=== PATIENT | female | born 1990 | race African-American/Black ===

== ENCOUNTER 2017-06-05 09:17 | Emergency (ER) | payer SELFPAY ==
[~2017-06-05] VITALS: Ht 157.5 cm; Wt 75.0 kg
[~2017-06-05 09:17] MED LIST: B-12100 MCG PO; BC HEADACH1 PO; CEPHALEXIN500 MG OR; CITALOPRAM20 MG PO; DEPO PROVERA; FIORICET PO; LORTAB 5 OR; LORTAB 5/3255 MG PO; LORTAB5 OR; LORTAB5 PO; MIRTAZAPINE15 MG PO; NAPROSYN500 MG OR; NAPROSYN500 MG PO; NAPROXEN500 MG OR; NORCO1 TA1 PO; PAXIL30 MG PO; PENICILLN VK500 M1 OR; PENICILLN VK500 MG OR; PENICILLN VK500 MG PO; TRAMADOL HCL50 MG OR; TRAZODONE50 MG PO; TYLENOL500 MG OR; ULTRAM50 M1 PO; ULTRAM50 MG PO; ZOVIRAX400 MG PO
[2017-06-05] MEDS ORDERED: FLEXERIL5 MG PO (09:44)
[2017-06-05] MEDS ORDERED: MOTRIN400 MG PO (09:44)
[2017-06-05 09:50] VITALS: BP 121/77
== END 2017-06-05 09:50 | disposition home or self-care (01) | DRG 556 ==
LOC: ED 09:17
DX: M62.838 Other muscle spasm (principal); M54.2 Cervicalgia

== ENCOUNTER 2017-10-05 14:49 | Emergency (ER) | payer SELFPAY ==
[~2017-10-05] VITALS: Ht 157.5 cm; Wt 73.8 kg
[~2017-10-05 14:49] MED LIST changes: +FLEXERIL5 MG PO; +MOTRIN400 MG PO
[2017-10-05 15:54] LABS: HEMATOCRIT 35.6 % (37.0-47.0); HEMOGLOBIN 11.6 g/dl (12.0-16.0); IMMATURE GRANULOCYTES 0.1 % (0.0-1.0); MEAN CORPUSCULAR HGB CONC 32.6 g/L CALC (32.0-36.0); NEUT# 3.82 thou/uL (2.00-7.15); RED BLOOD COUNT 3.87 mill/uL (4.20-5.60); RED CELL DISTRI WIDTH 12.1 % (11.5-15.5)
[2017-10-05 16:05] LABS: ALBUMIN 4.1 g/dL (3.2-5.0); ALKALINE PHOSPHATASE 88 u/l (38-126); ANION GAP 17 (6-22 (CALC)); BILIRUBIN, TOTAL 0.6 mg/dL (0.0-1.4); BUN 14 mg/dL (7-17); BUN/CREATININE RATIO 13 (12-20 (CALC)); CALCIUM 9.4 mg/dL (8.4-10.2); CARBON DIOXIDE 22 mmol/l (22-30); CHLORIDE 107 mmol/l (95-108); CREATININE 1.1 mg/dL (0.5-1.0); GFR 59 ML/MIN (>=60 (CALC)); GFR FOR AFR.AMER. > 60 ML/MIN (>=60 (CALC)); GLUCOSE 99 mg/dL (65-105); POTASSIUM 4.3 mmol/l (3.5-5.1); SGOT/AST 27 u/l (14-36); SGPT/ALT 27 u/l (9-52); SODIUM 143 mmol/l (137-146); TOTAL PROTEIN 6.7 g/dL (6.3-8.2)
[2017-10-05 16:10] LABS: URINE BILIRUBIN - DIPSTICK NEGATIVE (NEGATIVE); URINE BLOOD DIPSTICK TRACE-INTACT (NEGATIVE); URINE COLOR YELLOW; URINE GLUCOSE - DIPSTICK NEGATIVE (NEGATIVE); URINE KETONE NEGATIVE (NEGATIVE); URINE LEUK ESTERASE NEGATIVE (NEGATIVE); URINE NITRITE - DIPSTICK NEGATIVE (Negative); URINE PH 6.5 (4.5-8.0); URINE PROTEIN - DIPSTICK NEGATIVE (NEG-TRACE); URINE SPECIFIC GRAVITY 1.025
[2017-10-05 16:11] LABS: PROTHROMBIN TIME 11.6 SECONDS (9.0-12.5)
[2017-10-05 16:12] LABS: URINE CLARITY CLEAR
[2017-10-05] MEDS ORDERED: ANUCORT-HC25 MG RE (17:41)
[2017-10-05 18:15] VITALS: BP 95/63
== END 2017-10-05 18:15 | disposition home or self-care (01) | DRG 379 ==
LOC: ED 14:49
PROVIDERS: Emergency Medicine
DX: K62.5 Hemorrhage of anus and rectum (principal)

== ENCOUNTER 2018-03-26 17:23 | Emergency (ER) | payer OTHER ==
[~2018-03-26] VITALS: Ht 157.5 cm; Wt 68.2 kg
[~2018-03-26 17:23] MED LIST changes: +ANUCORT-HC25 MG RE
[2018-03-26] MEDS ORDERED: GABAPENTIN100 MG PO (17:36)
[2018-03-26] MEDS ORDERED: TRAZODONE50 MG PO (17:36)
[2018-03-26] MEDS ORDERED: AMOXICILLIN875 MG PO (17:47)
[2018-03-26 17:50] VITALS: BP 118/76
== END 2018-03-26 17:50 | disposition home or self-care (01) | DRG 153 ==
LOC: ED 17:23
DX: J02.9 Acute pharyngitis, unspecified (principal); R50.9 Fever, unspecified

== ENCOUNTER 2018-05-23 15:14 | Emergency (ER) | payer OTHER ==
[~2018-05-23] VITALS: Ht 157.5 cm; Wt 68.2 kg
[~2018-05-23 15:14] MED LIST changes: +AMOXICILLIN875 MG PO; +GABAPENTIN100 MG PO
[2018-05-23] MEDS ORDERED: AMITRIPTYLIN25 MG PO (15:57)
[2018-05-23] MEDS ORDERED: AMOXICILLIN875 MG PO ×2 (16:31→16:33)
[2018-05-23] MEDS ORDERED: IBUPROFEN600 MG PO ×2 (16:32→16:33)
[2018-05-23 16:40] VITALS: BP 114/67
== END 2018-05-23 16:40 | disposition home or self-care (01) ==
LOC: ED 15:14
DX: K08.89 Other specified disorders of teeth and supporting structures (principal); K04.7 Periapical abscess without sinus

== ENCOUNTER 2018-08-31 10:44 | Emergency (ER) | payer SELFPAY ==
[~2018-08-31] VITALS: Ht 157.5 cm; Wt 67.3 kg
[~2018-08-31 10:44] MED LIST changes: +AMITRIPTYLIN25 MG PO; +IBUPROFEN600 MG PO
[2018-08-31] MEDS ORDERED: AMOXICILLIN500 M2 PO (11:29)
[2018-08-31] MEDS ORDERED: TORADOL PO (11:29)
[2018-08-31 12:04] VITALS: BP 111/62
== END 2018-08-31 12:04 | disposition home or self-care (01) | DRG 93 ==
LOC: ED 10:44
DX: G89.29 Other chronic pain (principal); R51 Headache; K08.89 Other specified disorders of teeth and supporting structures; H53.149 Visual discomfort, unspecified

== ENCOUNTER 2023-10-27 05:59 | Emergency (ER) | payer OTHER ==
[2023-10-27] VITALS (9 sets, daily range): BP systolic 104–127; BP diastolic 60–87
[~2023-10-27] VITALS: Ht 160 cm; Wt 61.0 kg
[~2023-10-27 05:59] MED LIST changes: +AMOXICILLIN500 M2 PO; +DEPAKOTE500 MG PO; +TORADOL PO
[2023-10-27] MEDS ORDERED: DEPAKOTE ER500 MG PO (06:17)
[2023-10-27 06:25] LABS: BASO% 0.3 % (0-3); EOS% 1.8 % (0-8); HEMATOCRIT 35.1 % (37.0-47.0); HEMOGLOBIN 11.1 g/dl (12.0-16.0); IMMATURE GRANULOCYTES 0.3 % (0.0-5.0); LYMPH% 37.4 % (15-41); MEAN CELL VOLUME 96.2 fL CALC (80.0-100.0); MEAN CORPUSCULAR HGB 30.4 pG CALC (26.0-32.0); MEAN CORPUSCULAR HGB CONC 31.6 g/dL CAL (32.0-36.0); MONO% 8.6 % (2-13); NEUT# 1.68 thou/uL (2.00-7.15); NEUT% 51.6 % (42-76); RED BLOOD COUNT 3.65 mill/uL (4.20-5.60); RED CELL DISTRI WIDTH 12.2 % (11.5-15.5)
[2023-10-27 06:43] LABS: ALBUMIN 4.6 g/dL (3.2-5.0); ALKALINE PHOSPHATASE 59 u/l (38-126); ANION GAP 16 (6-22 (CALC)); BILIRUBIN, TOTAL 0.8 mg/dL (0.02-1.3); BUN 11 mg/dL (7-17); BUN/CREATININE RATIO 12 (12-20 (CALC)); CARBON DIOXIDE 24 mmol/l (22-30); CHLORIDE 103 mmol/l (95-108); CREATININE 0.9 mg/dL (0.5-1.0); GFR FOR AFR.AMER. > 60 ML/MIN (>=60 (CALC)); GFR OTHER RACES > 60 ML/MIN (>=60 (CALC)); LIPASE 141 u/l (23-300); MAGNESIUM 2.1 mg/dL (1.6-2.3); POTASSIUM 4.1 mmol/l (3.5-5.1); SGOT/AST 31 u/l (14-36); SODIUM 139 mmol/l (137-146); TOTAL PROTEIN 7.7 g/dL (6.3-8.2)
[2023-10-27 07:35] LABS: URINE BILIRUBIN - DIPSTICK Negative (NEGATIVE); URINE BLOOD DIPSTICK Moderate (NEGATIVE); URINE GLUCOSE - DIPSTICK Negative (NEGATIVE); URINE KETONE 15 mg/dL (NEGATIVE); URINE LEUK ESTERASE Negative (NEGATIVE); URINE PH >=9.0 (4.5-8.0); URINE PROTEIN - DIPSTICK 100 mg/dL (NEG-TRACE); URINE UROBILINOGEN - DIPSTICK 0.2 E.U./dL (0.2)
[2023-10-27 07:37] LABS: URINE COLOR Yellow
[2023-10-27 07:41] LABS: URINE NITRITE - DIPSTICK Negative (Negative)
[2023-10-27 07:45] LABS: URINE BACTERIA RARE hpf; URINE EPITHELIAL CELLS RARE EPI/hpf (0-FEW); URINE WBC 0-2 WBC/hpf (0-5)
[2023-10-27] MEDS ORDERED: ZOFRAN4 MG/TAB PO (08:09)
[2023-10-27] MEDS ORDERED: ANTI-DIARRHEAL2 M1 PO (08:09)
== END 2023-10-27 08:21 | disposition home or self-care (01) ==
LOC: ED 05:59
PROVIDERS: Internal Medicine
DX: R10.9 Unspecified abdominal pain (principal); R11.2 Nausea with vomiting, unspecified; R19.7 Diarrhea, unspecified; G40.909 Epilepsy, unspecified, not intractable, without status epilepticus; Z20.822 Contact with and (suspected) exposure to COVID-19

== ENCOUNTER 2024-11-17 22:52 | Emergency (ER) | payer OTHER ==
[~2024-11-17] VITALS: Ht 160 cm; Wt 72.0 kg
[~2024-11-17 22:52] MED LIST changes: +ANTI-DIARRHEAL2 M1 PO; +CORTISPORIN OTI10 ML AD; +DEPAKOTE ER500 MG PO; +METHOCARBAMOL500 MG PO; +TIZANIDINE2 MG PO; +ZOFRAN4 MG/TAB PO
[2024-11-17] MEDS ORDERED: SODIUM CHLORIDE 0.9% 1,000 ML IV ONE (23:10)
[2024-11-17] MEDS ORDERED: VALPROIC ACID 250 MG/CAP PO ONE (23:10)
[2024-11-17 23:29] LABS: BASO% 0.3 % (0-3); EOS% 1.9 % (0-8); HEMATOCRIT 32.3 % (37.0-47.0); HEMOGLOBIN 10.3 g/dl (12.0-16.0); IMMATURE GRANULOCYTES 0.2 % (0.0-5.0); LYMPH% 32.9 % (15-41); MEAN CELL VOLUME 93.4 fL CALC (80.0-100.0); MEAN CORPUSCULAR HGB 29.8 pG CALC (26.0-32.0); MEAN CORPUSCULAR HGB CONC 31.9 g/dL CAL (32.0-36.0); MONO% 9.3 % (2-13); NEUT# 3.29 thou/uL (2.00-7.15); NEUT% 55.4 % (42-76); RED BLOOD COUNT 3.46 mill/uL (4.20-5.60); RED CELL DISTRI WIDTH 12.7 % (11.5-15.5)
[2024-11-17 23:35] VITALS: BP 112/70
[2024-11-17 23:44] LABS: ALBUMIN 3.9 g/dL (3.2-5.0); ALKALINE PHOSPHATASE 71 u/l (38-126); ANION GAP 14 (6-22 (CALC)); BILIRUBIN, TOTAL 0.5 mg/dL (0.02-1.3); BUN 12 mg/dL (7-17); BUN/CREATININE RATIO 12 (12-20 (CALC)); CARBON DIOXIDE 20 mmol/l (22-30); CHLORIDE 108 mmol/l (95-108); ESTIMATED GFR 75 ML/MIN (>=90 (CALC)); ETHYL ALCOHOL 111 mg/dl (0-30); POTASSIUM 3.4 mmol/l (3.5-5.1); SGOT/AST 31 u/l (14-36); SODIUM 138 mmol/l (137-146); TOTAL PROTEIN 6.8 g/dL (6.3-8.2)
[2024-11-17 23:51] LABS: URINE BILIRUBIN - DIPSTICK Negative (NEGATIVE); URINE BLOOD DIPSTICK Trace-intact (NEGATIVE); URINE GLUCOSE - DIPSTICK Negative (NEGATIVE); URINE KETONE Negative (NEGATIVE); URINE LEUK ESTERASE Negative (NEGATIVE); URINE NITRITE - DIPSTICK Negative (Negative); URINE PROTEIN - DIPSTICK Negative (NEG-TRACE)
[2024-11-17 23:58] LABS: URINE COLOR Yellow
[2024-11-18] VITALS: BP 99/65
[2024-11-18 00:30] VITALS: BP 106/70
[2024-11-18 00:31] VITALS: BP 106/70
== END 2024-11-18 00:31 | disposition home or self-care (01) ==
LOC: ED 22:52
PROVIDERS: Family Medicine
DX: G40.409 Other generalized epilepsy and epileptic syndromes, not intractable, without status epilepticus (principal); F10.129 Alcohol abuse with intoxication, unspecified; Y90.5 Blood alcohol level of 100-119 mg/100 ml